=== PATIENT | male | born 1955 | race African-American/Black ===

== ENCOUNTER 2019-01-04 12:51 | Emergency (ER) | payer OTHER | END 2019-01-04 16:16 | disposition home or self-care (01) | LOC: JER 12:51 ==

== ENCOUNTER 2019-04-05 17:33 | Emergency (ER) | payer OTHER ==
--- NOTE | 2019-04-05 17:40 | PDOC ---
Rapid Medical Evaluation Chief Complaint: Injury Time Seen by Provider: 04/05/19 17:40 Medical Evaluation: Allergies Allergy/AdvReac Type Severity Reaction Status Date / Time chlorpromazine HCl Allergy Mild Rash Verified 01/04/19 12:55 [From Thorazine] 04/05/19 17:41 63 year old s/p slip and fall in the tub c/o lower back pain radiating to right knee since the fall. Pe: patient alert ox3. right lumbar area tenderness on palpation A: low back pain P: xray patient to the ER for further management of care. 04/05/19 17:44 Discharge Disposition - Diagnosis Lower back pain Qualifiers: Chronicity: acute Back pain laterality: right Sciatica presence: unspecified whether sciatica present Qualified Code(s): M54.5 - Low back pain - Referrals - Patient Instructions - Post Discharge Activity
[2019-04-05 17:46] VITALS: BP 134/78; PULSE 92; TEMP 97.5; BMI 36.2
[2019-04-05] MEDS ORDERED: ACETAMINOPHEN 500 MG TABLET (FP) PO ONE (18:39)
[2019-04-05] MEDS ORDERED: ACETAMINOPHEN 500 MG TABLET (FP) ONE (18:48)
--- NOTE | 2019-04-05 19:43 | PDOC ---
History of Present Illness - General Chief Complaint: Injury Stated Complaint: FALL BACK PAIN Time Seen by Provider: 04/05/19 17:40 History Source: Patient - History of Present Illness Initial Comments: 04/05/19 20:35 Complaint: Fall 63-year-old male with history of hypertension, hyperlipidemia, anemia, who was supposed to get an MRI tonight to evaluate for vasculitis who was getting ready to come to the hospital, slipped in the shower, fell hitting his lower back and twisting his right knee. Patient is ambulatory. Patient did not hit his head. Did not take any pain medicine. GENERAL/CONSTITUTIONAL: No fever, weakness. dizziness HEAD, EYES, EARS, NOSE AND THROAT: No change in vision. No ear pain or discharge. No sore throat. CARDIOVASCULAR: No chest pain RESPIRATORY: No shortness of breath or cough GASTROINTESTINAL: No pain, nausea, vomiting, diarrhea or constipation GENITOURINARY: No dysuria MUSCULOSKELETAL: No neck, +back pain, +right knee SKIN: No rash NEUROLOGIC: No headache, vertigo, loss of consciousness, or loss of sensation. GENERAL: The patient is awake, alert, and fully oriented, in no acute distress. HEAD: Normal with no signs of trauma. EYES: Pupils equal, round and reactive to light, sclera anicteric, conjunctiva clear. ENT: pharynx: no erythema, no exudate, uvula midline NECK: supple CHEST: clear, nontender, rr ABD: soft, nontender BACK: + Lower back tenderness, bruising or swelling EXTREMITIES: The knee, status post knee replacement in the past, with some pain with movement, no open wounds, able to ambulate, neurovascular intact. Rest of extremities, normal range of motion, no edema. NEUROLOGICAL: Normal speech, normal gait. SKIN: Warm, Dry Past History - Past Medical History Allergies/Adverse Reactions: Allergies Allergy/AdvReac Type Severity Reaction Status Date / Time chlorpromazine HCl Allergy Mild Rash Verified 01/04/19 12:55 [From Thorazine] Home Medications: Ambulatory Orders Amlodipine Besylate [Norvasc -] 5 mg PO DAILY #0 10/07/15 Aspirin Coated [Ecotrin -] 81 mg PO DAILY #30 tablet.ec 10/07/15 Methadone [Dolophine -] 110 mg PO DAILY tablet 10/07/15 Quetiapine Fumarate [Seroquel -] 100 mg PO HS #0 10/07/15 Sertraline HCl [Zoloft -] 50 mg PO DAILY #0 10/07/15 Topiramate [Topamax -] 25 mg PO DAILY #0 10/07/15 propRANOLol HCL [Inderal Xl] 120 mg PO DAILY #0 10/07/15 traZODone HCL [Desyrel -] 50 mg PO HS PRN #30 tablet 11/08/18 traZODone HCL [Trazodone HCl] 50 mg PO HS #30 tablet 01/03/19 traZODone HCL [Trazodone HCl] 50 mg PO HS #30 tablet 02/21/19 Oxycodone HCl/Acetaminophen [Percocet 5-325 mg Tablet] 1 tab PO Q6H PRN #20 tablet MDD 4 04/05/19 Anemia: No Asthma: No Cancer: No Cardiac Disorders: No CVA: No COPD: No CHF: No Dementia: No Diabetes: No GI Disorders: No (Polypectomy) Disorders: No HTN: Yes Hypercholesterolemia: Yes Kidney Stones: No Liver Disease: No Psychiatric Problems: Yes (anxiety) Seizures: No Thyroid Disease: No - Surgical History Abdominal Surgery: No Appendectomy: No Cardiac Surgery: No Cholecystectomy: No Lung Surgery: No Neurologic Surgery: No Orthopedic Surgery: No - Reproductive History Testicular Surgery: No - Immunization History Immunization Up to Date: Yes - Suicide/Smoking/Psychosocial Hx Smoking History: Current every day smoker Have you smoked in the past 12 months: Yes Number of Cigarettes Smoked Daily: 4 Information on smoking cessation initiated: No 'Breaking Loose' booklet given: 10/06/15 Hx Alcohol Use: No Drug/Substance Use Hx: No Substance Use Type: Alcohol Hx Substance Use Treatment: Yes *Physical Exam - Vital Signs Last Vital Signs Temp Pulse Resp BP Pulse Ox 97.5 F L 92 H 17 134/78 97 04/05/19 17:43 04/05/19 17:43 04/05/19 17:43 04/05/19 17:43 04/05/19 17:43 ED Treatment Course - RADIOLOGY Radiology Studies Ordered: Category Date Time Status KNEE 2 POS-RIGHT [RAD] Stat Radiology 04/05/19 18:38 Taken LEG TIB/FIB-RIGHT [RAD] Stat Radiology 04/05/19 18:38 Taken SPINE-LUMBAR SACRAL [RAD] Stat Radiology 04/05/19 18:38 Taken - Medications Given in the ED: ED Medications Discontinued Medications Generic Name Dose Route Start Last Admin Trade Name Hesham PRN Reason Stop Dose Admin Acetaminophen 1,000 mg 04/05/19 18:39 04/05/19 18:50 Tylenol - PO 04/05/19 18:40 1,000 mg ONCE ONE Administration Medical Decision Making - Medical Decision Making 04/05/19 21:04 Patient history of hypertension, hyperlipidemia and anemia who fell in bathtub, injuring lower back and knee, patient is ambulatory but in considerable pain. Discussed pain management. Will give small amount of Percocet given considerable pain. Patient will follow-up with his doctors Discussed issues, findings, results, applicable medications and treatments and follow-up. All these were understood and all questions were answered *DC/Admit/Observation/Transfer Diagnosis at time of Disposition: Back injury Qualifiers: Encounter type: initial encounter Qualified Code(s): S39.92XA - Unspecified injury of lower back, initial encounter Right knee injury Qualifiers: Encounter type: initial encounter Qualified Code(s): S89.91XA - Unspecified injury of right lower leg, initial encounter - Discharge Dispostion Disposition: HOME Condition at time of disposition: Stable Decision to Admit order: No - Prescriptions Prescriptions: Oxycodone HCl/Acetaminophen [Percocet 5-325 mg Tablet] 1 tab PO Q6H PRN #20 tablet MDD 4 PRN Reason: Pain - Referrals - Patient Instructions Printed Discharge Instructions: DI for Low Back Pain Additional Instructions: No heavy lifting or bending Apply ice to the area 20 minutes every 2 hours for the next 2 days take Percocet one tablets every 6 hours as needed for pain. Return to the nearest ER if numbness, weakness, severe pain, problems with urinating or having bowel movements. Call orthopedist today for an appointment for further evaluation - Post Discharge Activity
== END 2019-04-05 19:48 | disposition home or self-care (01) ==
LOC: JERFT 17:33
DX: S39.82XA Other specified injuries of lower back, initial encounter (principal); S89.81XA Other specified injuries of right lower leg, initial encounter; W18.2XXA Fall in (into) shower or empty bathtub, initial encounter; Y93.E1 Activity, personal bathing and showering; Y92.012 Bathroom of single-family (private) house as the place of occurrence of the external cause; Y99.8 Other external cause status
CPT/HCPCS: 72100-TC-FY; 73560-TC-RT-FY; 73590-TC-RT-FY; 99281-25

== ENCOUNTER 2022-07-08 18:27 | Observation (INO) | payer OTHER ==
[2022-07-08] MEDS ORDERED: SODIUM CHLORIDE 0.9% 500 ML INFUS.BAG IV ONE (19:29)
[2022-07-08 20:23] LABS: BASO % 0.3 % (0-2.0); EOS % 5.6 % (0-4.5); LYMPH % 28.5 % (8-40); MCH 27.4 pg (25.7-33.7); MCHC 32.5 g/dl (32.0-35.9); MEAN CELL VOLUME 84.5 fl (80-96); MEAN PLT VOLUME 7.8 fl (7.5-11.1); NEUT % 53.6 % (42.8-82.8); PLATELET COUNT 265 10^3/uL (134-434); RBC 4.74 M/mm3 (4.00-5.60); RDW 13.7 % (11.9-15.9); WHITE BLOOD COUNT 5.6 K/mm3 (4.0-10.0)
[2022-07-08 20:24] LABS: VENOUS O2 SATURATION 18.8 % (70-80); VENOUS PCO2 56.6 mmHg (38-52); VENOUS PH 7.304 (7.310-7.410)
[2022-07-08 20:46] LABS: CALCIUM 9.2 mg/dL (8.5-10.1)
[2022-07-08 20:47] LABS: ALBUMIN 3.6 g/dl (3.4-5.0)
[2022-07-08 20:50] LABS: CREATININE 0.8 mg/dL (0.55-1.3)
[2022-07-08 20:52] LABS: BILIRUBIN,TOTAL 0.5 mg/dL (0.2-1)
[2022-07-08 20:53] LABS: TOT PROT 7.6 g/dl (6.4-8.2)
[2022-07-08] MEDS ORDERED: SODIUM CHLORIDE 1,000 ML IV SCH (22:30)
[2022-07-09 00:33] LABS: PH,URINE 5.5 (5.0-8.0); URINE APPEARANCE CLEAR; URINE BILIRUBIN NEGATIVE (NEGATIVE); URINE COLOR YELLOW; URINE GLUCOSE (UA) NEGATIVE (NEGATIVE); URINE KETONE NEGATIVE (NEGATIVE); URINE LEUK ESTERASE NEGATIVE (NEGATIVE); URINE NITRITE NEGATIVE (NEGATIVE); URINE PROTEIN NEGATIVE (NEGATIVE)
[2022-07-09 00:36] LABS: PHENCYCLIDINE,URINE NEGATIVE (NEGATIVE); URINE AMPHETAMINES NEGATIVE (NEGATIVE); URINE BARBITURATES NEGATIVE (NEGATIVE)
[2022-07-09 00:43] LABS: COCAINE, UR POSITIVE (NEGATIVE); METHADONE, UR POSITIVE (NEGATIVE); OPIATES, URI POSITIVE (NEGATIVE); URINE BENZODIAZEPINES POSITIVE (NEGATIVE)
[2022-07-09 05:14] VITALS: TEMP 97.7
[2022-07-09 07:26] VITALS: RESP 20; BMI 37.0
[2022-07-09 09:56] LABS: ARTERIAL BLD GAS O2 SATURATION 94.4 % (95-98); ARTERIAL BLOOD GAS BASE EXCESS 2.8 mmol/L (-2-2); ARTERIAL BLOOD GAS PO2 72.8 mmHg (80-100); ARTERIAL BLOOD GAS pH 7.392 (7.350-7.450)
[2022-07-09 09:57] LABS: ALLENS TEST POSITIVE
[2022-07-09] MEDS ORDERED: ENOXAPARIN NA (PORCINE) 40 MG/0.4 ML DISP.SYRIN SQ SCH (10:00)
[2022-07-09] MEDS ORDERED: amLODIPine BESYLATE 5 MG TABLET (FP) PO SCH (10:00)
[2022-07-09 10:34] LABS: BASO % 0.8 % (0-2.0); EOS % 8.1 % (0-4.5); HEMATOCRIT 36.8 % (35.4-49); HEMOGLOBIN 12.2 GM/dL (11.7-16.9); LYMPH % 31.4 % (8-40); MCHC 33.1 g/dl (32.0-35.9); MEAN CELL VOLUME 84.4 fl (80-96); MEAN PLT VOLUME 7.9 fl (7.5-11.1); MONO % 13.6 % (3.8-10.2); NEUT % 46.1 % (42.8-82.8); PLATELET COUNT 235 10^3/uL (134-434); RBC 4.36 M/mm3 (4.00-5.60); RDW 13.8 % (11.9-15.9); WHITE BLOOD COUNT 4.5 K/mm3 (4.0-10.0)
[2022-07-09 11:11] LABS: ALBUMIN 3.1 g/dl (3.4-5.0); BLOOD UREA NITROGEN 8.9 mg/dL (7-18); CALCIUM 8.8 mg/dL (8.5-10.1); MAGNESIUM 1.9 mg/dL (1.8-2.4)
[2022-07-09 11:15] LABS: BILIRUBIN,TOTAL 1.2 mg/dL (0.2-1); CREATININE 0.7 mg/dL (0.55-1.3); TOT PROT 6.6 g/dl (6.4-8.2)
[2022-07-09 20:49] VITALS: BP 159/84; PULSE 77
== END 2022-07-09 19:25 | disposition home or self-care (01) ==
LOC: JER 18:27 → JERBED 21:47 → J5S 07-09 02:23
PROVIDERS: ADMIT Internal Medicine; ATTEND Internal Medicine
PROC: 3E023GC Introduction of Other Therapeutic Substance into Muscle, Percutaneous Approach (ICD-10-PCS; principal; 2022-07-08)
PROC: 3E0337Z Introduction of Electrolytic and Water Balance Substance into Peripheral Vein, Percutaneous Approach (ICD-10-PCS; 2022-07-08)
DX: Z79.891 Long term (current) use of opiate analgesic (principal); Z88.8 Allergy status to other drugs, medicaments and biological substances; E66.8 Other obesity; Z68.37 Body mass index [BMI] 37.0-37.9, adult; I10 Essential (primary) hypertension; E78.5 Hyperlipidemia, unspecified; D64.9 Anemia, unspecified; F41.9 Anxiety disorder, unspecified; E78.00 Pure hypercholesterolemia, unspecified; Z87.891 Personal history of nicotine dependence
CPT/HCPCS: 0241U-QW; 36415; 36600; 70450-TC; 71045-TC-FY; 72125-TC; 80053; 80307; 81003; 82550; 82553; 82803; 83735; 84100; 84484; 85025; 87086; 93005; 93010; 96360; 96361; 96372; 97116-GP; 97162-GP; 99285-25; G0378

== ENCOUNTER 2022-07-16 13:53 | Inpatient (IN) | payer OTHER ==
[2022-07-16 17:30] VITALS: BMI 30.6
[2022-07-16] MEDS ORDERED: hydrOXYzine PAMOATE 25 MG CAPSULE (FP) PO PRN (18:02)
[2022-07-16] MEDS ORDERED: MAG HYDROX/AL HYDROX/SIMETH 30 ML UNIT-DOSE CUP PO PRN (18:02)
[2022-07-16] MEDS ORDERED: BENZOCAINE/MENTHOL (CHLORASEPTIC ) LOZENGE MM PRN (18:02)
[2022-07-16] MEDS ORDERED: POLYETHYLENE GLYCOL (HEALTHYLAX) 3350 17 GM PACKET PO PRN (18:02)
[2022-07-16] MEDS ORDERED: MAGNESIUM HYDROX 2400MG/30ML ORAL SUSPENSION 30 ML CUP PO PRN (18:02)
[2022-07-16] MEDS ORDERED: LOPERAMIDE HCL 2 MG CAPSULE PO PRN (18:02)
[2022-07-16] MEDS ORDERED: IBUPROFEN 400 MG TABLET (FP) PO PRN (18:02)
[2022-07-16] MEDS ORDERED: guaiFENesin 200 MG/10 ML 10 ML UNIT-DOSE CUPS PO PRN (18:02)
[2022-07-16] MEDS ORDERED: P-EPHED 60MG/TRIPROLIDI 2.5MG TABLET PO PRN (18:02)
[2022-07-16] MEDS ORDERED: ACETAMINOPHEN 325 MG TABLET (FP) PO PRN (18:02)
[2022-07-16] MEDS: NICOTINE 7 MG/24 HOURS TOPICAL PATCH TD SCH (23:05)
[2022-07-16] MEDS: PRENATAL VITAMINS W/ FOLIC ACID TABLET (FP) PO SCH (23:05)
[2022-07-16] MEDS: THIAMINE HCL 100 MG TABLET (FP) PO SCH (23:06)
[2022-07-16] MEDS: MELATONIN 5 MG TABLETS PO SCH (23:06)
[2022-07-17] MEDS ORDERED: methaDONE HCL 10 MG TABLET PO ONE ×2 (10:00)
[2022-07-17] MEDS: PRENATAL VITAMINS W/ FOLIC ACID TABLET (FP) PO SCH (11:26)
[2022-07-17] MEDS: NICOTINE 7 MG/24 HOURS TOPICAL PATCH TD SCH (11:26)
[2022-07-17] MEDS: NICOTINE 10 MG CARTRIDGE (INHALER) IH PRN (11:27)
[2022-07-17 11:45] LABS: HEMATOCRIT 33.8 % (35.4-49); MCH 27.9 pg (25.7-33.7); MCHC 32.6 g/dl (32.0-35.9); MEAN CELL VOLUME 85.6 fl (80-96); MEAN PLT VOLUME 8.4 fl (7.5-11.1); PLATELET COUNT 229 10^3/uL (134-434); RBC 3.94 M/mm3 (4.00-5.60); WHITE BLOOD COUNT 4.7 K/mm3 (4.0-10.0)
[2022-07-17 12:24] LABS: SYPHILIS W/ RPR CONF NON-REACTIVE (NONREACTIVE)
[2022-07-17 12:31] LABS: ALBUMIN 2.9 g/dl (3.4-5.0)
[2022-07-17 12:35] LABS: BILIRUBIN,TOTAL 0.3 mg/dL (0.2-1); TOT PROT 6.2 g/dl (6.4-8.2)
[2022-07-17 12:41] LABS: BLOOD UREA NITROGEN 13.9 mg/dL (7-18); CALCIUM 8.5 mg/dL (8.5-10.1)
[2022-07-17 13:22] LABS: PH,URINE 6.5 (5.0-8.0); URINE APPEARANCE CLEAR; URINE BILIRUBIN NEGATIVE (NEGATIVE); URINE COLOR YELLOW; URINE GLUCOSE (UA) NEGATIVE (NEGATIVE); URINE KETONE NEGATIVE (NEGATIVE); URINE LEUK ESTERASE NEGATIVE (NEGATIVE); URINE NITRITE NEGATIVE (NEGATIVE); URINE PROTEIN NEGATIVE (NEGATIVE)
[2022-07-17] MEDS: THIAMINE HCL 100 MG TABLET (FP) PO SCH (21:44)
[2022-07-17] MEDS: MELATONIN 5 MG TABLETS PO SCH (21:44)
[2022-07-18] MEDS ORDERED: methaDONE HCL 10 MG TABLET PO SCH ×2 (06:00)
[2022-07-18] MEDS: PRENATAL VITAMINS W/ FOLIC ACID TABLET (FP) PO SCH (09:38)
[2022-07-18] MEDS: NICOTINE 7 MG/24 HOURS TOPICAL PATCH TD SCH (09:38)
[2022-07-18] MEDS: NICOTINE 10 MG CARTRIDGE (INHALER) IH PRN (14:22)
[2022-07-18 16:02] LABS: HIV INTERPRETATION NEGATIVE (NEGATIVE)
[2022-07-18] MEDS: THIAMINE HCL 100 MG TABLET (FP) PO SCH (21:45)
[2022-07-18] MEDS: MELATONIN 5 MG TABLETS PO SCH (21:45)
[2022-07-19] MEDS: NICOTINE 7 MG/24 HOURS TOPICAL PATCH TD SCH (10:17)
[2022-07-19] MEDS: PRENATAL VITAMINS W/ FOLIC ACID TABLET (FP) PO SCH (10:18)
[2022-07-19] MEDS: THIAMINE HCL 100 MG TABLET (FP) PO SCH (22:17)
[2022-07-19] MEDS: MELATONIN 5 MG TABLETS PO SCH (22:17)
[2022-07-20] MEDS: NICOTINE 7 MG/24 HOURS TOPICAL PATCH TD SCH (09:59)
[2022-07-20] MEDS: PRENATAL VITAMINS W/ FOLIC ACID TABLET (FP) PO SCH (09:59)
[2022-07-20] MEDS: NICOTINE 10 MG CARTRIDGE (INHALER) IH PRN (10:07)
[2022-07-20] MEDS: THIAMINE HCL 100 MG TABLET (FP) PO SCH (21:16)
[2022-07-20] MEDS: MELATONIN 5 MG TABLETS PO SCH (21:16)
[2022-07-20] MEDS: CLOTRIMAZOLE 1% CREAM TP SCH (21:17)
[2022-07-21] MEDS: amLODIPine BESYLATE 10 MG TABLET (FP) PO SCH (09:55)
[2022-07-21] MEDS: NICOTINE 7 MG/24 HOURS TOPICAL PATCH TD SCH (09:56)
[2022-07-21] MEDS: NICOTINE 10 MG CARTRIDGE (INHALER) IH PRN (09:56)
[2022-07-21] MEDS: CLOTRIMAZOLE 1% CREAM TP SCH ×2 (09:57→21:31)
[2022-07-21] MEDS: PRENATAL VITAMINS W/ FOLIC ACID TABLET (FP) PO SCH (09:58)
[2022-07-21] MEDS: THIAMINE HCL 100 MG TABLET (FP) PO SCH (21:30)
[2022-07-21] MEDS: MELATONIN 5 MG TABLETS PO SCH (21:30)
[2022-07-22] MEDS: CLOTRIMAZOLE 1% CREAM TP SCH ×2 (09:53→21:50)
[2022-07-22] MEDS: amLODIPine BESYLATE 10 MG TABLET (FP) PO SCH (09:54)
[2022-07-22] MEDS: NICOTINE 7 MG/24 HOURS TOPICAL PATCH TD SCH (09:54)
[2022-07-22] MEDS: PRENATAL VITAMINS W/ FOLIC ACID TABLET (FP) PO SCH (09:54)
[2022-07-22] MEDS: THIAMINE HCL 100 MG TABLET (FP) PO SCH (21:50)
[2022-07-22] MEDS: MELATONIN 5 MG TABLETS PO SCH (21:50)
[2022-07-23] MEDS: NICOTINE 7 MG/24 HOURS TOPICAL PATCH TD SCH (10:17)
[2022-07-23] MEDS: CLOTRIMAZOLE 1% CREAM TP SCH ×2 (10:17→21:58)
[2022-07-23] MEDS: amLODIPine BESYLATE 10 MG TABLET (FP) PO SCH (10:22)
[2022-07-23] MEDS: PRENATAL VITAMINS W/ FOLIC ACID TABLET (FP) PO SCH (10:22)
[2022-07-23] MEDS: NICOTINE 10 MG CARTRIDGE (INHALER) IH PRN (10:23)
[2022-07-23] MEDS: THIAMINE HCL 100 MG TABLET (FP) PO SCH (21:57)
[2022-07-23] MEDS: MELATONIN 5 MG TABLETS PO SCH (21:57)
[2022-07-24] MEDS: PRENATAL VITAMINS W/ FOLIC ACID TABLET (FP) PO SCH (10:34)
[2022-07-24] MEDS: amLODIPine BESYLATE 10 MG TABLET (FP) PO SCH (10:34)
[2022-07-24] MEDS: NICOTINE 7 MG/24 HOURS TOPICAL PATCH TD SCH (10:35)
[2022-07-24] MEDS: CLOTRIMAZOLE 1% CREAM TP SCH ×2 (10:35→21:19)
[2022-07-24] MEDS: MELATONIN 5 MG TABLETS PO SCH (21:18)
[2022-07-24] MEDS: THIAMINE HCL 100 MG TABLET (FP) PO SCH (21:18)
[2022-07-25] MEDS ORDERED: methaDONE HCL 40 MG DISPERSABLE TABLET PO SCH (06:00)
[2022-07-25] MEDS: LACTULOSE 20 GM/30 ML UDC (FOR ORAL USE ONLY) PO SCH ×2 (10:27→21:35)
[2022-07-25] MEDS: PRENATAL VITAMINS W/ FOLIC ACID TABLET (FP) PO SCH (10:27)
[2022-07-25] MEDS: amLODIPine BESYLATE 10 MG TABLET (FP) PO SCH (10:27)
[2022-07-25] MEDS: NICOTINE 7 MG/24 HOURS TOPICAL PATCH TD SCH (10:27)
[2022-07-25] MEDS: CLOTRIMAZOLE 1% CREAM TP SCH ×2 (10:27→21:35)
[2022-07-25] MEDS: MELATONIN 5 MG TABLETS PO SCH (21:35)
[2022-07-25] MEDS: THIAMINE HCL 100 MG TABLET (FP) PO SCH (21:35)
[2022-07-26] MEDS: CLOTRIMAZOLE 1% CREAM TP SCH ×2 (09:51→21:29)
[2022-07-26] MEDS: PRENATAL VITAMINS W/ FOLIC ACID TABLET (FP) PO SCH (09:52)
[2022-07-26] MEDS: NICOTINE 7 MG/24 HOURS TOPICAL PATCH TD SCH (09:52)
[2022-07-26] MEDS: amLODIPine BESYLATE 10 MG TABLET (FP) PO SCH (09:52)
[2022-07-26] MEDS: LACTULOSE 20 GM/30 ML UDC (FOR ORAL USE ONLY) PO SCH ×2 (14:40→21:28)
[2022-07-26] MEDS: THIAMINE HCL 100 MG TABLET (FP) PO SCH (21:28)
[2022-07-26] MEDS: MELATONIN 5 MG TABLETS PO SCH (21:28)
[2022-07-27] MEDS: LACTULOSE 20 GM/30 ML UDC (FOR ORAL USE ONLY) PO SCH ×3 (05:54→21:37)
[2022-07-27] MEDS: NICOTINE 7 MG/24 HOURS TOPICAL PATCH TD SCH (09:52)
[2022-07-27] MEDS: PRENATAL VITAMINS W/ FOLIC ACID TABLET (FP) PO SCH (09:52)
[2022-07-27] MEDS: CLOTRIMAZOLE 1% CREAM TP SCH ×2 (09:52→21:38)
[2022-07-27] MEDS: amLODIPine BESYLATE 10 MG TABLET (FP) PO SCH (09:53)
[2022-07-27] MEDS: THIAMINE HCL 100 MG TABLET (FP) PO SCH (21:37)
[2022-07-27] MEDS: MELATONIN 5 MG TABLETS PO SCH (21:37)
[2022-07-28] MEDS: LACTULOSE 20 GM/30 ML UDC (FOR ORAL USE ONLY) PO SCH ×3 (05:58→21:39)
[2022-07-28] MEDS: PRENATAL VITAMINS W/ FOLIC ACID TABLET (FP) PO SCH (10:19)
[2022-07-28] MEDS: CLOTRIMAZOLE 1% CREAM TP SCH ×2 (10:19→21:40)
[2022-07-28] MEDS: NICOTINE 7 MG/24 HOURS TOPICAL PATCH TD SCH (10:19)
[2022-07-28] MEDS: amLODIPine BESYLATE 10 MG TABLET (FP) PO SCH (10:19)
[2022-07-28] MEDS: THIAMINE HCL 100 MG TABLET (FP) PO SCH (21:39)
[2022-07-28] MEDS: MELATONIN 5 MG TABLETS PO SCH (21:39)
[2022-07-29] MEDS: LACTULOSE 20 GM/30 ML UDC (FOR ORAL USE ONLY) PO SCH ×3 (06:19→21:32)
[2022-07-29] MEDS: NICOTINE 7 MG/24 HOURS TOPICAL PATCH TD SCH (10:03)
[2022-07-29] MEDS: PRENATAL VITAMINS W/ FOLIC ACID TABLET (FP) PO SCH (10:04)
[2022-07-29] MEDS: amLODIPine BESYLATE 10 MG TABLET (FP) PO SCH (10:04)
[2022-07-29] MEDS: CLOTRIMAZOLE 1% CREAM TP SCH ×2 (10:05→21:32)
[2022-07-29] MEDS: THIAMINE HCL 100 MG TABLET (FP) PO SCH (21:32)
[2022-07-29] MEDS: MELATONIN 5 MG TABLETS PO SCH (21:32)
[2022-07-30] MEDS: LACTULOSE 20 GM/30 ML UDC (FOR ORAL USE ONLY) PO SCH ×3 (05:36→21:20)
[2022-07-30] MEDS: PRENATAL VITAMINS W/ FOLIC ACID TABLET (FP) PO SCH (09:45)
[2022-07-30] MEDS: NICOTINE 7 MG/24 HOURS TOPICAL PATCH TD SCH (09:45)
[2022-07-30] MEDS: amLODIPine BESYLATE 10 MG TABLET (FP) PO SCH (09:45)
[2022-07-30] MEDS: CLOTRIMAZOLE 1% CREAM TP SCH ×2 (09:45→21:21)
[2022-07-30] MEDS: MELATONIN 5 MG TABLETS PO SCH (21:20)
[2022-07-30] MEDS: THIAMINE HCL 100 MG TABLET (FP) PO SCH (21:20)
[2022-07-31] MEDS: LACTULOSE 20 GM/30 ML UDC (FOR ORAL USE ONLY) PO SCH ×3 (05:39→21:45)
[2022-07-31] MEDS: NICOTINE 7 MG/24 HOURS TOPICAL PATCH TD SCH (09:52)
[2022-07-31] MEDS: CLOTRIMAZOLE 1% CREAM TP SCH ×2 (09:52→21:45)
[2022-07-31] MEDS: PRENATAL VITAMINS W/ FOLIC ACID TABLET (FP) PO SCH (09:52)
[2022-07-31] MEDS: amLODIPine BESYLATE 10 MG TABLET (FP) PO SCH (09:52)
[2022-07-31] MEDS: MELATONIN 5 MG TABLETS PO SCH (21:44)
[2022-07-31] MEDS: THIAMINE HCL 100 MG TABLET (FP) PO SCH (21:45)
[2022-08-01] MEDS: LACTULOSE 20 GM/30 ML UDC (FOR ORAL USE ONLY) PO SCH ×3 (05:43→21:39)
[2022-08-01] MEDS: CLOTRIMAZOLE 1% CREAM TP SCH ×2 (10:09→21:39)
[2022-08-01] MEDS: NICOTINE 7 MG/24 HOURS TOPICAL PATCH TD SCH (10:09)
[2022-08-01] MEDS: PRENATAL VITAMINS W/ FOLIC ACID TABLET (FP) PO SCH (10:09)
[2022-08-01] MEDS: amLODIPine BESYLATE 10 MG TABLET (FP) PO SCH (10:09)
[2022-08-01] MEDS: MELATONIN 5 MG TABLETS PO SCH (21:39)
[2022-08-01] MEDS: THIAMINE HCL 100 MG TABLET (FP) PO SCH (21:39)
[2022-08-02] MEDS: LACTULOSE 20 GM/30 ML UDC (FOR ORAL USE ONLY) PO SCH ×2 (06:09→13:28)
[2022-08-02] MEDS: CLOTRIMAZOLE 1% CREAM TP SCH ×2 (10:09→21:28)
[2022-08-02] MEDS: PRENATAL VITAMINS W/ FOLIC ACID TABLET (FP) PO SCH (10:09)
[2022-08-02] MEDS: NICOTINE 7 MG/24 HOURS TOPICAL PATCH TD SCH (10:09)
[2022-08-02] MEDS: amLODIPine BESYLATE 10 MG TABLET (FP) PO SCH (10:09)
[2022-08-02] MEDS: THIAMINE HCL 100 MG TABLET (FP) PO SCH (21:28)
[2022-08-02] MEDS: MELATONIN 5 MG TABLETS PO SCH (21:28)
[2022-08-03] MEDS: NICOTINE 7 MG/24 HOURS TOPICAL PATCH TD SCH (09:54)
[2022-08-03] MEDS: PRENATAL VITAMINS W/ FOLIC ACID TABLET (FP) PO SCH (09:54)
[2022-08-03] MEDS: CLOTRIMAZOLE 1% CREAM TP SCH ×2 (09:54→21:24)
[2022-08-03] MEDS: amLODIPine BESYLATE 10 MG TABLET (FP) PO SCH (09:54)
[2022-08-03] MEDS: MELATONIN 5 MG TABLETS PO SCH (21:24)
[2022-08-03] MEDS: THIAMINE HCL 100 MG TABLET (FP) PO SCH (21:24)
[2022-08-04] MEDS: amLODIPine BESYLATE 10 MG TABLET (FP) PO SCH (09:35)
[2022-08-04] MEDS: NICOTINE 7 MG/24 HOURS TOPICAL PATCH TD SCH (09:35)
[2022-08-04] MEDS: CLOTRIMAZOLE 1% CREAM TP SCH ×2 (09:35→21:11)
[2022-08-04] MEDS: PRENATAL VITAMINS W/ FOLIC ACID TABLET (FP) PO SCH (09:35)
[2022-08-04] MEDS: THIAMINE HCL 100 MG TABLET (FP) PO SCH (21:11)
[2022-08-04] MEDS: MELATONIN 5 MG TABLETS PO SCH (21:11)
[2022-08-05 06:24] VITALS: RESP 18
[2022-08-05] MEDS: amLODIPine BESYLATE 10 MG TABLET (FP) PO SCH (09:37)
[2022-08-05] MEDS: NICOTINE 7 MG/24 HOURS TOPICAL PATCH TD SCH (09:37)
[2022-08-05] MEDS: PRENATAL VITAMINS W/ FOLIC ACID TABLET (FP) PO SCH (09:37)
[2022-08-05] MEDS: CLOTRIMAZOLE 1% CREAM TP SCH ×2 (09:37→21:22)
[2022-08-05] MEDS: THIAMINE HCL 100 MG TABLET (FP) PO SCH (21:22)
[2022-08-05] MEDS: MELATONIN 5 MG TABLETS PO SCH (21:22)
[2022-08-06 07:04] VITALS: BP 132/69; PULSE 66; TEMP 97.7
[2022-08-06] MEDS: PRENATAL VITAMINS W/ FOLIC ACID TABLET (FP) PO SCH (09:00)
[2022-08-06] MEDS: amLODIPine BESYLATE 10 MG TABLET (FP) PO SCH (09:00)
[2022-08-06] MEDS: NICOTINE 7 MG/24 HOURS TOPICAL PATCH TD SCH (10:00)
[2022-08-06] MEDS: CLOTRIMAZOLE 1% CREAM TP SCH (10:00)
== END 2022-08-06 10:05 | disposition home or self-care (01) | DRG 895 ==
LOC: YASAS 13:53 → Y3W 22:31
PROVIDERS: ADMIT Allergy & Immunology; ATTEND Psychiatry & Neurology Pain Medicine
PROC: HZ42ZZZ Group Counseling for Substance Abuse Treatment, Cognitive-Behavioral (ICD-10-PCS; principal; 2022-07-16)
DX: F11.20 Opioid dependence, uncomplicated (principal); E72.20 Disorder of urea cycle metabolism, unspecified; F17.210 Nicotine dependence, cigarettes, uncomplicated; F31.9 Bipolar disorder, unspecified; D64.9 Anemia, unspecified; E78.5 Hyperlipidemia, unspecified; I10 Essential (primary) hypertension; E88.09 Other disorders of plasma-protein metabolism, not elsewhere classified; N52.9 Male erectile dysfunction, unspecified; N62 Hypertrophy of breast; Z96.651 Presence of right artificial knee joint; Z88.8 Allergy status to other drugs, medicaments and biological substances
CPT/HCPCS: 36415; 80053; 81003; 82140; 82962; 85027; 86704; 86708; 86780; 86803; 87389; 87811; C9803-CS; U0003; U0005

== ENCOUNTER 2022-11-22 13:20 | Emergency (ER) | payer OTHER ==
[2022-11-22 13:47] VITALS: RESP 18; TEMP 97.7; BMI 33.0
[2022-11-22] MEDS ORDERED: LACTATED RINGERS SOLUTION 1000 ML INFUS.BAG IV ONE (14:54)
[2022-11-22] MEDS ORDERED: METOCLOPRAMIDE HCL INJECTION 10 MG/2 ML VIAL IVPUSH ONE (14:54)
[2022-11-22] MEDS ORDERED: ACETAMINOPHEN 1000 MG/100 ML BAG IVPB ONE (14:54)
[2022-11-22] MEDS ORDERED: METOCLOPRAMIDE HCL INJECTION 10 MG/2 ML VIAL ONE (14:56)
[2022-11-22] MEDS ORDERED: ACETAMINOPHEN INJECTION 100 ML IVPB ONE (14:56)
[2022-11-22 15:02] LABS: BASO % 0.5 % (0-2.0); EOS % 12.2 % (0-4.5); HEMATOCRIT 36.1 % (35.4-49); HEMOGLOBIN 12.2 GM/dL (11.7-16.9); LYMPH % 30.1 % (8-40); MCHC 33.7 g/dl (32.0-35.9); MEAN CELL VOLUME 82.9 fl (80-96); MEAN PLT VOLUME 7.9 fl (7.5-11.1); MONO % 8.8 % (3.8-10.2); NEUT % 48.4 % (42.8-82.8); PLATELET COUNT 239 10^3/uL (134-434); RBC 4.36 M/mm3 (4.00-5.60); RDW 14.3 % (11.9-15.9); WHITE BLOOD COUNT 4.7 K/mm3 (4.0-10.0)
[2022-11-22 15:10] LABS: INR 1.1 (0.83-1.09); PROTHROMBIN TIME (PATIENT) 12.7 SEC (9.7-13.0)
[2022-11-22 15:12] LABS: ACTIVATED PTT 34.4 SECONDS (25.2-36.5)
[2022-11-22 15:24] LABS: ALBUMIN 3.4 g/dl (3.4-5.0); CALCIUM 9.2 mg/dL (8.5-10.1)
[2022-11-22 15:27] LABS: CREATININE 0.8 mg/dL (0.55-1.3)
[2022-11-22 15:29] LABS: BILIRUBIN,TOTAL 0.4 mg/dL (0.2-1); TOT PROT 7.5 g/dl (6.4-8.2)
[2022-11-22 17:52] VITALS: BP 118/60; PULSE 64
== END 2022-11-22 17:52 | disposition home or self-care (01) ==
LOC: JER 13:20
PROC: 3E033NZ Introduction of Analgesics, Hypnotics, Sedatives into Peripheral Vein, Percutaneous Approach (ICD-10-PCS; principal; 2022-11-22)
PROC: 3E033GC Introduction of Other Therapeutic Substance into Peripheral Vein, Percutaneous Approach (ICD-10-PCS; 2022-11-22)
DX: J01.90 Acute sinusitis, unspecified (principal); R51.9 Headache, unspecified; R42 Dizziness and giddiness; R07.9 Chest pain, unspecified; Z20.822 Contact with and (suspected) exposure to COVID-19
CPT/HCPCS: 0241U-QW; 36415; 70450-TC; 71045-TC-FY; 80053; 84484; 85025; 85610; 85730; 93005; 93010; 99285-25

== ENCOUNTER 2023-01-14 10:05 | Inpatient (IN) | payer OTHER ==
[2023-01-14 10:21] VITALS: BMI 32.0
[2023-01-14] MEDS ORDERED: MAG HYDROX/AL HYDROX/SIMETH 30 ML UNIT-DOSE CUP PO PRN (10:46)
[2023-01-14] MEDS ORDERED: BENZOCAINE/MENTHOL (CHLORASEPTIC ) LOZENGE MM PRN (10:46)
[2023-01-14] MEDS ORDERED: P-EPHED 60MG/TRIPROLIDI 2.5MG TABLET PO PRN (10:46)
[2023-01-14] MEDS ORDERED: POLYETHYLENE GLYCOL (HEALTHYLAX) 3350 17 GM PACKET PO PRN (10:46)
[2023-01-14] MEDS ORDERED: MAGNESIUM HYDROX 2400MG/30ML ORAL SUSPENSION 30 ML CUP PO PRN (10:46)
[2023-01-14] MEDS ORDERED: NALOXONE HCL (KLOXXADO) 8 MG SPRAY NS PRN (10:46)
[2023-01-14] MEDS ORDERED: guaiFENesin 600 MG TABLET.ER (FP) PO PRN (10:46)
[2023-01-14] MEDS ORDERED: BENZONATATE 200 MG CAPSULE PO PRN (10:46)
[2023-01-14] MEDS ORDERED: LOPERAMIDE HCL 2 MG CAPSULE PO PRN (10:46)
[2023-01-14] MEDS ORDERED: NALOXONE HCL 0.4 MG/ML VIAL IM PRN (10:46)
[2023-01-14] MEDS ORDERED: COLLOIDAL OATMEAL 1 BAR EACH TP PRN (10:46)
[2023-01-14] MEDS ORDERED: AMMONIUM LACTATE 12% LOTION 225 GM BOTTLE TP PRN (10:46)
[2023-01-14] MEDS ORDERED: IBUPROFEN 400 MG TABLET (FP) PO PRN (10:46)
[2023-01-14] MEDS ORDERED: amLODIPine BESYLATE 5 MG TABLET (FP) ONE (11:08)
[2023-01-14] MEDS: amLODIPine BESYLATE 10 MG TABLET (FP) PO SCH (12:24)
[2023-01-14 14:35] LABS: HEMATOCRIT 38.2 % (35.4-49); HEMOGLOBIN 12.1 GM/dL (11.7-16.9); MCHC 31.7 g/dl (32.0-35.9); MEAN CELL VOLUME 85.1 fl (80-96); PLATELET COUNT 245 10^3/uL (134-434); RBC 4.49 M/mm3 (4.00-5.60); RDW 14.1 % (11.9-15.9); WHITE BLOOD COUNT 4.6 K/mm3 (4.0-10.0)
[2023-01-14 14:39] LABS: POTASSIUM 3.9 mmol/L (3.5-5.1)
[2023-01-14 14:45] LABS: ALBUMIN 3.2 g/dl (3.4-5.0); CALCIUM 9.4 mg/dL (8.5-10.1)
[2023-01-14 14:46] LABS: BLOOD UREA NITROGEN 11.9 mg/dL (7-18)
[2023-01-14 14:49] LABS: BILIRUBIN,TOTAL 0.4 mg/dL (0.2-1); CREATININE 0.8 mg/dL (0.55-1.3); TOT PROT 7.2 g/dl (6.4-8.2)
[2023-01-14 15:05] LABS: SYPHILIS W/ RPR CONF NON-REACTIVE (NONREACTIVE)
[2023-01-14] MEDS: ACETAMINOPHEN 325 MG TABLET (FP) PO PRN (18:01)
[2023-01-14] MEDS: MELATONIN 5 MG TABLETS PO PRN (21:42)
[2023-01-14] MEDS: THIAMINE HCL 100 MG TABLET (FP) PO SCH (21:42)
[2023-01-15] MEDS ORDERED: methaDONE HCL 40 MG DISPERSABLE TABLET PO SCH (07:00)
[2023-01-15] MEDS: PRENATAL VITAMINS W/ FOLIC ACID TABLET (FP) PO SCH (09:46)
[2023-01-15] MEDS: amLODIPine BESYLATE 10 MG TABLET (FP) PO SCH (09:46)
[2023-01-15] MEDS ORDERED: PNEUMOC 20-VAL CONJ-DIP CRM/PF 0.5 ML SYRINGE IM ONE (12:00)
[2023-01-15] MEDS: THIAMINE HCL 100 MG TABLET (FP) PO SCH (21:17)
[2023-01-15] MEDS: MELATONIN 5 MG TABLETS PO PRN (21:17)
[2023-01-16] MEDS: NICOTINE POLACRILEX 2 MG GUM BUC PRN ×2 (06:20→09:17)
[2023-01-16] MEDS: PRENATAL VITAMINS W/ FOLIC ACID TABLET (FP) PO SCH (09:16)
[2023-01-16] MEDS: amLODIPine BESYLATE 10 MG TABLET (FP) PO SCH (09:16)
[2023-01-16] MEDS: THIAMINE HCL 100 MG TABLET (FP) PO SCH (21:12)
[2023-01-16] MEDS: MELATONIN 5 MG TABLETS PO PRN (21:12)
[2023-01-16 21:58] LABS: URINE APPEARANCE CLEAR; URINE BILIRUBIN NEGATIVE (NEGATIVE); URINE COLOR YELLOW; URINE GLUCOSE (UA) NEGATIVE (NEGATIVE); URINE KETONE NEGATIVE (NEGATIVE); URINE LEUK ESTERASE NEGATIVE (NEGATIVE); URINE NITRITE NEGATIVE (NEGATIVE); URINE PROTEIN NEGATIVE (NEGATIVE)
[2023-01-17] MEDS: NICOTINE POLACRILEX 2 MG GUM BUC PRN (10:20)
[2023-01-17] MEDS: PRENATAL VITAMINS W/ FOLIC ACID TABLET (FP) PO SCH (10:21)
[2023-01-17] MEDS: amLODIPine BESYLATE 10 MG TABLET (FP) PO SCH (10:21)
[2023-01-17] MEDS: NICOTINE 10 MG CARTRIDGE (INHALER) IH PRN (12:10)
[2023-01-17] MEDS: THIAMINE HCL 100 MG TABLET (FP) PO SCH (21:01)
[2023-01-17] MEDS: MELATONIN 5 MG TABLETS PO PRN (21:01)
[2023-01-18] MEDS: NICOTINE 10 MG CARTRIDGE (INHALER) IH PRN (09:53)
[2023-01-18] MEDS: amLODIPine BESYLATE 10 MG TABLET (FP) PO SCH (09:53)
[2023-01-18] MEDS: PRENATAL VITAMINS W/ FOLIC ACID TABLET (FP) PO SCH (09:53)
[2023-01-18] MEDS: THIAMINE HCL 100 MG TABLET (FP) PO SCH (21:17)
[2023-01-18] MEDS: MELATONIN 5 MG TABLETS PO PRN (21:17)
[2023-01-19] MEDS: PRENATAL VITAMINS W/ FOLIC ACID TABLET (FP) PO SCH (10:36)
[2023-01-19] MEDS: amLODIPine BESYLATE 10 MG TABLET (FP) PO SCH (10:36)
[2023-01-19] MEDS: NICOTINE 10 MG CARTRIDGE (INHALER) IH PRN (10:37)
[2023-01-19] MEDS: NICOTINE POLACRILEX 2 MG GUM BUC PRN (10:38)
[2023-01-19] MEDS: MELATONIN 5 MG TABLETS PO PRN (21:15)
[2023-01-19] MEDS: THIAMINE HCL 100 MG TABLET (FP) PO SCH (21:16)
[2023-01-20] MEDS: NICOTINE 10 MG CARTRIDGE (INHALER) IH PRN (06:12)
[2023-01-20] MEDS: NICOTINE POLACRILEX 2 MG GUM BUC PRN (06:13)
[2023-01-20] MEDS: amLODIPine BESYLATE 10 MG TABLET (FP) PO SCH (10:03)
[2023-01-20] MEDS: PRENATAL VITAMINS W/ FOLIC ACID TABLET (FP) PO SCH (10:03)
[2023-01-20] MEDS: THIAMINE HCL 100 MG TABLET (FP) PO SCH (21:20)
[2023-01-20] MEDS: MELATONIN 5 MG TABLETS PO PRN (21:20)
[2023-01-21] MEDS: NICOTINE POLACRILEX 2 MG GUM BUC PRN ×2 (06:19→17:02)
[2023-01-21] MEDS: amLODIPine BESYLATE 10 MG TABLET (FP) PO SCH (10:06)
[2023-01-21] MEDS: PRENATAL VITAMINS W/ FOLIC ACID TABLET (FP) PO SCH (10:06)
[2023-01-21] MEDS: NICOTINE 10 MG CARTRIDGE (INHALER) IH PRN (17:02)
[2023-01-21] MEDS: THIAMINE HCL 100 MG TABLET (FP) PO SCH (21:25)
[2023-01-21] MEDS: MELATONIN 5 MG TABLETS PO PRN (21:25)
[2023-01-22] MEDS: NICOTINE 10 MG CARTRIDGE (INHALER) IH PRN (05:55)
[2023-01-22] MEDS: NICOTINE POLACRILEX 2 MG GUM BUC PRN ×2 (05:55→09:46)
[2023-01-22] MEDS: PRENATAL VITAMINS W/ FOLIC ACID TABLET (FP) PO SCH (09:44)
[2023-01-22] MEDS: amLODIPine BESYLATE 10 MG TABLET (FP) PO SCH (09:44)
[2023-01-22] MEDS: IBUPROFEN 600 MG TABLET (FP) PO PRN (15:44)
[2023-01-22] MEDS: MELATONIN 5 MG TABLETS PO PRN (21:47)
[2023-01-22] MEDS: THIAMINE HCL 100 MG TABLET (FP) PO SCH (21:47)
[2023-01-23] MEDS: NICOTINE POLACRILEX 2 MG GUM BUC PRN ×2 (05:21→09:53)
[2023-01-23] MEDS: NICOTINE 10 MG CARTRIDGE (INHALER) IH PRN ×2 (05:22→09:54)
[2023-01-23] MEDS: amLODIPine BESYLATE 10 MG TABLET (FP) PO SCH (09:53)
[2023-01-23] MEDS: PRENATAL VITAMINS W/ FOLIC ACID TABLET (FP) PO SCH (09:53)
[2023-01-23] MEDS: THIAMINE HCL 100 MG TABLET (FP) PO SCH (21:41)
[2023-01-23] MEDS: MELATONIN 5 MG TABLETS PO PRN (21:41)
[2023-01-24] MEDS: PRENATAL VITAMINS W/ FOLIC ACID TABLET (FP) PO SCH (10:00)
[2023-01-24] MEDS: amLODIPine BESYLATE 10 MG TABLET (FP) PO SCH (10:01)
[2023-01-24] MEDS: NICOTINE 10 MG CARTRIDGE (INHALER) IH PRN (10:01)
[2023-01-24] MEDS: NICOTINE POLACRILEX 2 MG GUM BUC PRN (10:01)
[2023-01-24] MEDS: THIAMINE HCL 100 MG TABLET (FP) PO SCH (21:32)
[2023-01-24] MEDS: MELATONIN 5 MG TABLETS PO PRN (21:33)
[2023-01-25] MEDS: PRENATAL VITAMINS W/ FOLIC ACID TABLET (FP) PO SCH (09:52)
[2023-01-25] MEDS: amLODIPine BESYLATE 10 MG TABLET (FP) PO SCH (09:52)
[2023-01-25] MEDS: NICOTINE POLACRILEX 2 MG GUM BUC PRN (09:53)
[2023-01-25] MEDS: NICOTINE 10 MG CARTRIDGE (INHALER) IH PRN (09:53)
[2023-01-25] MEDS: IBUPROFEN 600 MG TABLET (FP) PO PRN (13:28)
[2023-01-25] MEDS: THIAMINE HCL 100 MG TABLET (FP) PO SCH (21:15)
[2023-01-25] MEDS: MELATONIN 5 MG TABLETS PO PRN (21:16)
[2023-01-26] MEDS: NICOTINE POLACRILEX 2 MG GUM BUC PRN (06:04)
[2023-01-26] MEDS: amLODIPine BESYLATE 10 MG TABLET (FP) PO SCH (09:55)
[2023-01-26] MEDS: PRENATAL VITAMINS W/ FOLIC ACID TABLET (FP) PO SCH (09:55)
[2023-01-26] MEDS: NICOTINE 10 MG CARTRIDGE (INHALER) IH PRN (09:55)
[2023-01-26] MEDS: THIAMINE HCL 100 MG TABLET (FP) PO SCH (21:17)
[2023-01-26] MEDS: MELATONIN 5 MG TABLETS PO PRN (21:17)
[2023-01-27] MEDS: amLODIPine BESYLATE 10 MG TABLET (FP) PO SCH (10:05)
[2023-01-27] MEDS: NICOTINE 10 MG CARTRIDGE (INHALER) IH PRN (10:05)
[2023-01-27] MEDS: PRENATAL VITAMINS W/ FOLIC ACID TABLET (FP) PO SCH (10:05)
[2023-01-27] MEDS: NICOTINE POLACRILEX 2 MG GUM BUC PRN (10:06)
[2023-01-27] MEDS: THIAMINE HCL 100 MG TABLET (FP) PO SCH (21:17)
[2023-01-27] MEDS: MELATONIN 5 MG TABLETS PO PRN (21:18)
[2023-01-28] MEDS: PRENATAL VITAMINS W/ FOLIC ACID TABLET (FP) PO SCH (10:14)
[2023-01-28] MEDS: NICOTINE 10 MG CARTRIDGE (INHALER) IH PRN (10:15)
[2023-01-28] MEDS: NICOTINE POLACRILEX 2 MG GUM BUC PRN (10:15)
[2023-01-28] MEDS: amLODIPine BESYLATE 10 MG TABLET (FP) PO SCH (10:15)
[2023-01-28] MEDS: THIAMINE HCL 100 MG TABLET (FP) PO SCH (21:19)
[2023-01-28] MEDS: MELATONIN 5 MG TABLETS PO PRN (21:19)
[2023-01-29] MEDS: PRENATAL VITAMINS W/ FOLIC ACID TABLET (FP) PO SCH (10:07)
[2023-01-29] MEDS: amLODIPine BESYLATE 10 MG TABLET (FP) PO SCH (10:07)
[2023-01-29] MEDS: IBUPROFEN 600 MG TABLET (FP) PO PRN (10:07)
[2023-01-29] MEDS: NICOTINE POLACRILEX 2 MG GUM BUC PRN ×2 (10:08→21:27)
[2023-01-29] MEDS: THIAMINE HCL 100 MG TABLET (FP) PO SCH (21:27)
[2023-01-29] MEDS: MELATONIN 5 MG TABLETS PO PRN (21:27)
[2023-01-30] MEDS: amLODIPine BESYLATE 10 MG TABLET (FP) PO SCH (09:27)
[2023-01-30] MEDS: PRENATAL VITAMINS W/ FOLIC ACID TABLET (FP) PO SCH (09:27)
[2023-01-30] MEDS: THIAMINE HCL 100 MG TABLET (FP) PO SCH (21:19)
[2023-01-30] MEDS: MELATONIN 5 MG TABLETS PO PRN (21:19)
[2023-01-31] MEDS: amLODIPine BESYLATE 10 MG TABLET (FP) PO SCH (09:52)
[2023-01-31] MEDS: PRENATAL VITAMINS W/ FOLIC ACID TABLET (FP) PO SCH (09:52)
[2023-01-31] MEDS: NICOTINE 10 MG CARTRIDGE (INHALER) IH PRN (09:52)
[2023-01-31] MEDS: NICOTINE POLACRILEX 2 MG GUM BUC PRN (09:53)
[2023-01-31] MEDS: MELATONIN 5 MG TABLETS PO PRN (21:32)
[2023-01-31] MEDS: THIAMINE HCL 100 MG TABLET (FP) PO SCH (21:32)
[2023-02-01] MEDS: NICOTINE POLACRILEX 2 MG GUM BUC PRN (10:05)
[2023-02-01] MEDS: NICOTINE 10 MG CARTRIDGE (INHALER) IH PRN (10:05)
[2023-02-01] MEDS: amLODIPine BESYLATE 10 MG TABLET (FP) PO SCH (10:05)
[2023-02-01] MEDS: PRENATAL VITAMINS W/ FOLIC ACID TABLET (FP) PO SCH (10:05)
[2023-02-01] MEDS: MELATONIN 5 MG TABLETS PO PRN (21:15)
[2023-02-01] MEDS: THIAMINE HCL 100 MG TABLET (FP) PO SCH (21:15)
[2023-02-02] MEDS: NICOTINE 10 MG CARTRIDGE (INHALER) IH PRN (05:55)
[2023-02-02] MEDS: amLODIPine BESYLATE 10 MG TABLET (FP) PO SCH (10:17)
[2023-02-02] MEDS: PRENATAL VITAMINS W/ FOLIC ACID TABLET (FP) PO SCH (10:17)
[2023-02-02] MEDS: NICOTINE POLACRILEX 2 MG GUM BUC PRN (10:18)
[2023-02-02] MEDS: THIAMINE HCL 100 MG TABLET (FP) PO SCH (21:17)
[2023-02-02] MEDS: MELATONIN 5 MG TABLETS PO PRN (21:17)
[2023-02-03] MEDS: NICOTINE 10 MG CARTRIDGE (INHALER) IH PRN (05:52)
[2023-02-03] MEDS: PRENATAL VITAMINS W/ FOLIC ACID TABLET (FP) PO SCH (10:05)
[2023-02-03] MEDS: amLODIPine BESYLATE 10 MG TABLET (FP) PO SCH (10:05)
[2023-02-03] MEDS: NICOTINE POLACRILEX 2 MG GUM BUC PRN (10:06)
[2023-02-03] MEDS: ACETAMINOPHEN 325 MG TABLET (FP) PO PRN (18:06)
[2023-02-03] MEDS: MELATONIN 5 MG TABLETS PO PRN (21:25)
[2023-02-03] MEDS: THIAMINE HCL 100 MG TABLET (FP) PO SCH (21:25)
[2023-02-04] MEDS: NICOTINE 10 MG CARTRIDGE (INHALER) IH PRN (06:09)
[2023-02-04 07:02] VITALS: BP 146/73; PULSE 66; RESP 18; TEMP 97.1
[2023-02-04] MEDS: PRENATAL VITAMINS W/ FOLIC ACID TABLET (FP) PO SCH (09:20)
[2023-02-04] MEDS: amLODIPine BESYLATE 10 MG TABLET (FP) PO SCH (09:20)
== END 2023-02-04 09:38 | disposition home or self-care (01) | DRG 895 ==
LOC: YASAS 10:05 → Y3W 11:31
PROVIDERS: ADMIT Allergy & Immunology; ATTEND Psychiatry & Neurology Pain Medicine
PROC: HZ42ZZZ Group Counseling for Substance Abuse Treatment, Cognitive-Behavioral (ICD-10-PCS; principal; 2023-01-14)
DX: F14.20 Cocaine dependence, uncomplicated (principal); F11.20 Opioid dependence, uncomplicated; F19.282 Other psychoactive substance dependence with psychoactive substance-induced sleep disorder; F20.0 Paranoid schizophrenia; F17.210 Nicotine dependence, cigarettes, uncomplicated; F31.9 Bipolar disorder, unspecified; F19.24 Other psychoactive substance dependence with psychoactive substance-induced mood disorder; E78.5 Hyperlipidemia, unspecified; G47.00 Insomnia, unspecified; I10 Essential (primary) hypertension; R76.11 Nonspecific reaction to tuberculin skin test without active tuberculosis; Z62.810 Personal history of physical and sexual abuse in childhood; Z91.410 Personal history of adult physical and sexual abuse; Z88.8 Allergy status to other drugs, medicaments and biological substances
CPT/HCPCS: 36415; 80053; 81003; 85027; 86780; 86803; 87635; 90832-95

== ENCOUNTER 2023-02-14 15:18 | Emergency (ER) | payer OTHER ==
[2023-02-14 16:25] VITALS: RESP 18; TEMP 98.1; BMI 28.4
[2023-02-14 17:51] LABS: BASO % 0.4 % (0-2.0); EOS % 5.8 % (0-4.5); HEMATOCRIT 35.3 % (35.4-49); HEMOGLOBIN 11.6 GM/dL (11.7-16.9); LYMPH % 32.9 % (8-40); MCH 27.3 pg (25.7-33.7); MCHC 32.8 g/dl (32.0-35.9); MEAN CELL VOLUME 83.2 fl (80-96); MEAN PLT VOLUME 8.1 fl (7.5-11.1); MONO % 8.8 % (3.8-10.2); NEUT % 52.1 % (42.8-82.8); PLATELET COUNT 245 10^3/uL (134-434); RBC 4.24 M/mm3 (4.00-5.60); RDW 14.1 % (11.9-15.9); WHITE BLOOD COUNT 5.1 K/mm3 (4.0-10.0)
[2023-02-14 17:58] LABS: INR 1.1 (0.83-1.09); PROTHROMBIN TIME (PATIENT) 12.7 SEC (9.7-13.0)
[2023-02-14 18:10] LABS: POTASSIUM 3.8 mmol/L (3.5-5.1)
[2023-02-14 18:13] LABS: ALBUMIN 3.4 g/dl (3.4-5.0); BLOOD UREA NITROGEN 11.4 mg/dL (7-18); CALCIUM 9.1 mg/dL (8.5-10.1); MAGNESIUM 2.2 mg/dL (1.8-2.4)
[2023-02-14 18:16] LABS: CREATININE 0.8 mg/dL (0.55-1.3)
[2023-02-14 18:18] LABS: BILIRUBIN,TOTAL 0.4 mg/dL (0.2-1); TOT PROT 7.2 g/dl (6.4-8.2)
[2023-02-14 20:57] VITALS: BP 128/78; PULSE 78
== END 2023-02-14 20:58 | disposition home or self-care (01) ==
LOC: JER 15:18
DX: T51.0X1A Toxic effect of ethanol, accidental (unintentional), initial encounter (principal); R40.0 Somnolence
CPT/HCPCS: 36415; 80053; 80307; 82962; 83605; 83735; 84484; 85025; 85610; 85730; 93005; 93010; 99284-25